=== PATIENT | male | born 1970 | race Caucasian/White ===

== ENCOUNTER 2025-01-26 20:06 | Emergency (ER) | payer OTHER, SELFPAY ==
[2025-01-26] VITALS (7 sets, daily range): BP systolic 116–145; BP diastolic 59–98; PULSE 52–67; RESP 18; TEMP 36.8; O2SAT 93–99; BMI 25.8
--- NOTE | 2025-01-26 20:39 | DI.CT.S_ITS ---
PROCEDURE: CT ABDOMEN PELVIS W CON INDICATIONS: abd back pain TECHNIQUE: After the administration of intravenous contrast, axial sections acquired from the lung bases to the pubic symphysis. Coronal and sagittal reformats were performed. For radiation dose reduction, the following was used: automated exposure control, adjustment of mA and/or kV according to patient size. COMPARISON: None. FINDINGS: Image quality: Diagnostic. Lower Chest: No significant findings. ABDOMEN: Liver: No solid mass. Gallbladder: No radiopaque gallstones or wall thickening. Biliary ducts: No biliary dilation. Pancreas: No ductal dilation. Spleen: Size is within normal limits. Adrenal Glands: No adrenal nodules. Kidneys and Ureters: Mild left hydronephrosis. Left hydroureter. No additional kidney stones seen. No solid mass. No complex renal cystic lesion which requires follow up. Stomach and Bowel: Normal colonic caliber, without significant wall thickening. Peritoneum: No abnormal intraperitoneal fluid. No free air. Ventral Wall: No significant ventral hernia. Abdominal Nodes: No retroperitoneal or mesenteric adenopathy by size criteria. Vessels: Aorta and inferior vena cava are normal in size. PELVIS: Pelvic Organs: Unremarkable. Bladder: No bladder wall thickening. Small stone in the urinary bladder measuring 0.3 cm. Pelvic Nodes: No enlarged lymph nodes. Miscellaneous: No inguinal hernias are seen. Bones: No aggressive osseous abnormality. IMPRESSION: 1. Small stone in the urinary bladder measuring 0.3 cm. Past through the left ureter. Mild left hydronephrosis. 2. No additional kidney stones seen. 3. Normal appendix. No free fluid. Dictated by: Sourav Dela Cruz M.D. on 01/26/2025 at 21:53 Approved by: Sourav Dela Cruz M.D. on 01/26/2025 at 22:00
[2025-01-26 20:45] LABS: Add Manual Diff / Slide Review NO; Hematocrit 43.6 % (41-53); Hemoglobin 14.9 g/dL (13.5-17.5); Lymphocytes Absolute Auto 1100 /uL (1100-4500); Mean Corpuscular HGB Conc 34.1 % (30-36); Mean Corpuscular Hemoglobin 30.2 PG (26-34); Mean Corpuscular Volume 88.7 fL (80-100); Platelet Count 199 X10^3/uL (150-400)
[2025-01-26 20:52] LABS: Alanine Aminotransferase 20 IU/L (<50); Albumin 4.5 g/dL (3.5-5.0); Albumin Globulin Ratio 1.6 (1.0-2.8); Alkaline Phosphatase 60 U/L (38-126); Blood Urea Nitrogen 18 mg/dL (9-20); Calcium 9.2 mg/dL (8.4-10.2); Carbon Dioxide 27 mmol/L (22-32); Chloride 103 mmol/L (98-107); Estimated Glomerular Filt Rate > 60 mL/min (>60); Globulin 2.9 g/dL (1.7-4.1); Glucose 133 mg/dL (70-99); HEMOLYSIS < 15 (0-50); Lipase 68 U/L (23-300); Potassium 4.2 mmol/L (3.4-5.1); Sodium 136 mmol/L (137-145); Total Protein 7.4 g/dL (6.3-8.2)
[2025-01-26 20:57] LABS: Culture Indicated Urine Cult Not Indicated
[2025-01-26] MEDS: KETOROLAC 30 MG/ML VIAL 15 MG IV (20:58)
[2025-01-26] MEDS: LACTATED RINGERS 1,000 ML 1000 ML IV (20:59)
--- NOTE | 2025-01-26 21:09 | ED.ABDPAIN ---
HPI - Abdominal Pain General Chief Complaint: Urogenital-Male Stated Complaint: back/kindney pain, possible kidney stones Time Seen by Provider: 01/26/25 20:07 Source: patient Mode of arrival: Ambulatory History of Present Illness HPI narrative: 54-year-old gentleman with no significant past medical history presents with left flank pain radiating to left lower quadrant and left groin region this evening while cooking dinner. His last bowel movement was at noon. He denies any fever, chills, bodyaches, hematuria, rectal bleeding, constipation, diarrhea, chest pain, shortness of breath, penile discharge, testicular pain, or any history of kidney stones or diverticulitis. He did not take anything for the pain but drove him to the ER immediately. Other than what is stated 14 point review of system is negative. Related Data Previous Rx's ?Medication ?Instructions ?Recorded hydrocodone 5 mg-acetaminophen 325 1 tab PO Q4-6H PRN pain #20 tabs 01/26/25 mg tablet tamsulosin 0.4 mg capsule (Flomax) 0.4 mg PO DAILY #30 caps 01/26/25 Allergies Allergy/AdvReac Type Severity Reaction Status Date / Time No Known Drug Allergies Allergy Verified 01/26/25 20:18 Review of Systems Review of Systems ROS Unobtainable: All systems reviewed & are unremarkable except as noted in HPI and below Patient History Social History Smoking Status: Never smoker Smoking Status: Never smoker Exam Narrative Exam Narrative: GENERAL: [54] year old patient appears stated age. Well-developed patient, in mild distress. HEAD: Atraumatic. Normocephalic. EYES: Pupils equal round and reactive. Extraocular motions intact. No scleral icterus. No injection or drainage. ENT: Nose without bleeding, purulent drainage. Throat without erythema, tonsillar hypertrophy or exudate. Airway patent. NECK: Trachea midline. Non tender CARDIOVASCULAR: Regular rate and rhythm without murmurs, gallops, or rubs. RESPIRATORY: Clear to auscultation. Breath sounds equal bilaterally. No wheezes, rales, or rhonchi. GASTROINTESTINAL: Abdomen soft, non-tender, nondistended. EXTREMITIES: No edema or joint tenderness. BACK: Nontender without deformity or crepitance. No flank tenderness. NEURO: AOx3. SKIN: No rash or erythema of visible areas Initial Vital Signs Initial Vital Signs: Vital Signs Temperature 98.3 F 10/01/25 20:18 Pulse Rate 56 L 01/26/25 20:18 Respiratory Rate 18 01/26/25 20:18 Blood Pressure 141/87 H 01/26/25 20:18 Pulse Oximetry 98 01/26/25 20:18 Oxygen Delivery Method Room Air 01/26/25 20:18 Course Orders Ordered: ED Orders 01/26/25 20:15 Urine Microscopic Stat 01/26/25 20:21 Complete Blood Count AUTO DIFF Stat Comprehensive Metabolic Panel Stat Lipase Stat 01/26/25 20:39 CT abdomen pelvis w con Stat Lactated Ringer's (Lactated Ringers) 1,000 mls @ 1,000 mls/hr IV BOLUS ONE Stop: 01/26/25 21:38 Last Admin: 01/26/25 20:59 Dose: 1,000 mls/hr Documented By: TAQUERIA Ondansetron HCl (Ondansetron 4 Mg/2 Ml Inj) 4 mg IV NOW PRN PRN Reason: Nausea And Vomiting Ondansetron HCl (Ondansetron 4 Mg Odt) 4 mg PO NOW PRN PRN Reason: Nausea And Vomiting Discontinued Medications Ketorolac Tromethamine (Ketorolac 30 Mg/Ml Vial) 15 mg IV NOW ONE Stop: 01/26/25 20:52 Last Admin: 01/26/25 20:58 Dose: 15 mg Documented By: TAQUERIA Vital Signs Vital signs: Vital Signs - 8 hr 01/26/25 20:18 Temperature 98.3 F Pulse Rate 56 L Respiratory Rate 18 Blood Pressure 141/87 H Pulse Oximetry 98 Oxygen Delivery Method Room Air MDM - Abdominal Pain Lab Data 01/26/25 20:21 01/26/25 20:21 Labs: Lab Results 01/26/25 01/26/25 Range/Units 20:15 20:21 WBC 11.9 H (4.5-11.0) X10^3/uL RBC 4.92 (4.5-5.9) X10^6/uL Hgb 14.9 (13.5-17.5) g/dL Hct 43.6 (41-53) % MCV 88.7 (80-100) fL MCH 30.2 (26-34) PG MCHC 34.1 (30-36) % RDW 13.5 (11.6-14.8) % Plt Count 199 (150-400) X10^3/uL Neut % (Auto) 82.5 H (50-75) % Lymph % (Auto) 9.1 L (25-40) % [place] % (Auto) 7.4 (3-14) % Eos % (Auto) 0.6 L (2-4) % Baso % (Auto) 0.4 (0-2) % Neut # (Auto) 9900 H (1654-4925) /uL Lymph # (Auto) 1100 (9847-6384) /uL [place] # (Auto) 900 (0-900) /uL Eos # (Auto) 100 (0-450) /uL Baso # (Auto) 100 (0-100) /uL Sodium 136 L (137-145) mmol/L Potassium 4.2 (3.4-5.1) mmol/L Chloride 103 (98-107) mmol/L Carbon Dioxide 27 (22-32) mmol/L BUN 18 (9-20) mg/dL Creatinine 1.07 (0.66-1.25) mg/dL Estimated GFR > 60 (>60) mL/min BUN/Creatinine Ratio 16.8 (6-22) Glucose 133 H (70-99) mg/dL Calcium 9.2 (8.4-10.2) mg/dL Total Bilirubin 0.6 (0.2-1.3) mg/dL AST 33 (17-59) IU/L ALT 20 (<50) IU/L Alkaline Phosphatase 60 (38-126) U/L Total Protein 7.4 (6.3-8.2) g/dL Albumin 4.5 (3.5-5.0) g/dL Globulin 2.9 (1.7-4.1) g/dL Albumin/Globulin Ratio 1.6 (1.0-2.8) Lipase 68 (23-300) U/L Urine RBC 1-5/hpf (0-5/HPF) Urine WBC 0-1/hpf (0-5/HPF) Ur Squamous Epith Cells 0-1 /hpf (0-5/HPF) Amorphous Sediment 1+ Urine Bacteria Occasional (0-1) (None) Ur Culture Indicated? Cult not indicated Vol Urine Centrifuged 10ml (spun) Point of care testing: Urine Dip Bedside Urine Glucose Negative Bedside Urine Bilirubin - Negative Bedside Urine Ketone + 15 Urine Specific [place] 1.010 Bedside Urine Occult Blood + Bedside Urine pH 8.5 Bedside Urine Protein +/- 15 Bedside Urine Urobilinogen - Negative Bedside Urine Nitrite - Negative Bedside Urine Leukocytes - Negative Esterase Imaging Data CT scan - abdomen/pelvis: Radiologist's Impression: [address] [address] [address] Scan Report Signed Patient: Duy Carlisle Jr MR#: [id number] : 1970 Acct:[id number] Age/Sex: 54 / M Date of Service: 01/26/25 Loc: ED Accession Number: [id number] Procedure: CT abdomen pelvis w con Ordering Provider: Duy Wakefield D.O. PROCEDURE: CT ABDOMEN PELVIS W CON INDICATIONS: abd back pain TECHNIQUE: After the administration of intravenous contrast, axial sections acquired from the lung bases to the pubic symphysis. Coronal and sagittal reformats were performed. For radiation dose reduction, the following was used: automated exposure control, adjustment of mA and/or kV according to patient size. COMPARISON: None. FINDINGS: Image quality: Diagnostic. Lower Chest: No significant findings. ABDOMEN: Liver: No solid mass. Gallbladder: No radiopaque gallstones or wall thickening. Biliary ducts: No biliary dilation. Pancreas: No ductal dilation. Spleen: Size is within normal limits. Adrenal Glands: No adrenal nodules. Kidneys and Ureters: Mild left hydronephrosis. Left hydroureter. No additional kidney stones seen. No solid mass. No complex renal cystic lesion which requires follow up. Stomach and Bowel: Normal colonic caliber, without significant wall thickening. Peritoneum: No abnormal intraperitoneal fluid. No free air. Ventral Wall: No significant ventral hernia. Abdominal Nodes: No retroperitoneal or mesenteric adenopathy by size criteria. Vessels: Aorta and inferior vena cava are normal in size. PELVIS: Pelvic Organs: Unremarkable. Bladder: No bladder wall thickening. Small stone in the urinary bladder measuring 0.3 cm. Pelvic Nodes: No enlarged lymph nodes. Miscellaneous: No inguinal hernias are seen. Bones: No aggressive osseous abnormality. IMPRESSION: 1. Small stone in the urinary bladder measuring 0.3 cm. Past through the left ureter. Mild left hydronephrosis. 2. No additional kidney stones seen. 3. Normal appendix. No free fluid. Dictated by: Sourav Dela Cruz M.D. on 01/26/2025 at 21:53 MDM Narrative Medical decision making narrative: Vital signs, nurse triage note, medication list, previous ER visits, and all imaging studies reviewed. White count 11.9 hemoglobin 14.9 platelet 199 sodium 136 potassium 4.2 chloride 103 bicarb 27 BUN 18 creatinine 1.07 glucose 133 LFTs normal lipase [address] scan showed small stone in the urinary bladder measuring 0.3 cm passed through the left ureter mild left hydronephrosis. No additional kidney stone seen normal appendix no free fluid. Patient given fluids Toradol Dilaudid Flomax strainer. Patient will be discharged on Flomax strainer and [place] and to follow up with Urology. Differential diagnosis diverticulitis, kidney stone, kidney infection, pancreatitis, constipation. Discharge Plan Departure Patient Disposition: Home Clinical Impression: Kidney stone Instructions: DI for Kidney Stones Activity Restrictions/Additional Instructions: Return with new or worsening symptoms. Take medicines as directed. Follow up with the urologist next week if no improvement in symptoms. Prescriptions: New tamsulosin [Flomax] 0.4 mg capsule 0.4 mg PO DAILY Qty: 30 0RF hydrocodone-acetaminophen 5-325 mg tablet 1 tab PO Q4-6H PRN (Reason: pain) Qty: 20 0RF Referrals: Gunjan Wilhelm PA-C [Primary Care Provider, Medical] Stand Alone Forms: Patient Portal/API
[2025-01-26] MEDS: TAMSULOSIN 0.4 MG CAPSULE PO (22:11)
== END 2025-01-26 22:39 | disposition home or self-care (01) ==
PROVIDERS: Emergency Provider Family Medicine; PCP Physician Assistant
DX: N20.0 Calculus of kidney (principal)
CPT/HCPCS: 36415; 74177; 80053; 81003; 81015; 83690; 85025; 96361; 96374; 96375; 99284; J1171; J1885; J7120; Q9967